=== PATIENT | female | born 1975 | race Caucasian/White ===

== ENCOUNTER → 2019-06-27 | Emergency (ER) | payer OTHER ==
[~2019-06-27] VITALS: Ht 177.8 cm; Wt 103.0 kg
[~2019-06-27] MED LIST: NORVASC10 MG PO; TOPROL XL50 MG PO; VALSARTAN-HCTZ1 EAC4 PO
== END | disposition left against medical advice (07) ==
LOC: ER 21:42
DX: Z53.20 Procedure and treatment not carried out because of patient's decision for unspecified reasons (principal)